=== PATIENT | male | born 2000 | race Two or more races ===

== ENCOUNTER 2024-10-13 02:33 | Emergency (ER) | payer BC, SELFPAY ==
[2024-10-13 02:35] VITALS: BMI 35.7
[2024-10-13 02:39] VITALS: BP 116/72; PULSE 73; RESP 18; TEMP 36.4; O2SAT 98
--- NOTE | 2024-10-13 02:47 | EKG_ITS ---
[facility] Test Date: 2024-10-13 Pat Name: JACOBO PEÑA Department: Room: - Gender: Male Sales Producer: : 2000 Requested By: Kyle Galindo Order Number: [id number] Reading MD: Kyle Galindo Measurements Intervals [place] Rate: 66 P: 66 [place]: 150 QRS: 51 QRSD: 89 T: 47 QT: 325 QTc: 342 Interpretive Statements SINUS RHYTHM WITH SINUS ARRHYTHMIA No previous ECG available for comparison /store/[email or web address]/[id number].pdf
--- NOTE | 2024-10-13 03:08 | XR_ITS ---
Examination: CT brain head without contrast. 2-D sagittal coronal reconstructions Date and time of exam:October 13, 2024 0423 hrs. Indications: Dizziness beginning 3 days ago CTDI: vol (mGy):51.4 DLP: (mGycm):1001 Technique: Multiple CT axial sections of the brain have been obtained, 5 mm slice thickness. Contrast has not been administered. 2-D sagittal, coronal reconstructions have been obtained Low dose protocols were performed. One or more of the following dose reduction techniques were used; automated exposure control, adjustment of the mA and/or KV according to patient size, use of iterative reconstruction technique. Findings: No significant ventricular enlargement. Intra-axial or extra-axial hemorrhage density is not seen. No mass effect or midline shift Basal cisterns are not remarkable. Fourth ventricle is midline. Cranial vault intact. Impression: Negative for acute hemorrhage, mass effect or midline shift Advise clinical correlation follow-up accordingly
[2024-10-13 03:40] LABS: Basophils % (Auto) 0 % (0-2.5); Eosinophils % (Auto) 0 % (0-10); Hematocrit 41.5 % (41.0-53.0); Hemoglobin 14.5 g/dL (13.5-16.0); Immature Granulocytes % (Auto) 0 % (0-0); Immature Granulocytes Auto 0.02 Thou/mm3 (0.00-0.00); Lymphocytes # (Auto) 1.7 Thou/mm3 (1.0-4.8); Lymphocytes % (Auto) 20 % (10-50); Mean Corpuscular HGB Conc 34.9 g/dl (31.0-37.0); Mean Corpuscular Hemoglobin 30.5 pg (25.0-35.0); Mean Corpuscular Volume 87 fL (80-100); Monocytes # (Auto) 0.5 Thou/mm3 (0.0-0.8); Monocytes % (Auto) 5 % (0-12); Neutrophils # (Auto) 6.5 Thou/mm3 (1.8-7.7); Neutrophils % (Auto) 75 % (37-80); Nucleated Red Blood Cell % 0 /100 WBC (0); Platelet Count 265 Thou/mm3 (140-440); RDW Standard Deviation 41.4 fL (35.1-43.9); Red Blood Count 4.76 Miln/mm3 (4.50-5.90); White Blood Count 8.7 Thou/mm3 (3.8-10.6)
[2024-10-13 03:48] LABS: Collection Type, Urine Clean Catch
[2024-10-13] MEDS: MECLIZINE HCL 25 MG TABLET PO (03:48)
[2024-10-13 04:05] LABS: Alanine Aminotransferase 13 U/L (10-49); Albumin, Serum 4.7 gm/dL (3.5-5.0); Albumin/Globulin Ratio 1.4 (1.2-2.2); Alcohol, Blood Medical < 3.0 mg/dL (0-10.0); Alkaline Phosphatase 68 U/L (46-116); Anion Gap 8 (7-16); Aspartate Amino Transferase 19 U/L (0-34); BUN/Creatinine Ratio 15 Ratio (12-20); Bilirubin,Total 0.6 mg/dL (0.3-1.2); Blood Urea Nitrogen 12 mg/dL (9-23); Calcium 10.4 mg/dL (8.3-10.6); Calcium (Corrected) 10.4 mg/dL (8.5-10.1); Carbon Dioxide 27.3 mMol/L (20.0-31.0); Chloride 106 mMol/L (98-107); Creatinine (Component) 0.8 mg/dL (0.6-1.3); Estimated Creatinine Clearance 165.6 mL/min (>60); Globulin 3.3 gm/dL (2.3-3.5); Glucose 103 mg/dL (74-106); Osmolality,Calculated 280 (275-295); Potassium 4.6 mMol/L (3.4-5.1); Sodium 141 mMol/L (136-145); Troponin I < 0.020 ng/mL (0.0-0.045); eGFR > 60 See Note
[2024-10-13 04:25] LABS: Bilirubin,Urine Negative (Negative); Blood,Urine Negative (Negative); Clarity,Urine Clear (Clear/Hazy); Color,Urine Yellow (Lt Yel-Yel); Glucose, Urine Negative (Negative); Ketones,Urine Negative (Negative); Leukocyte Esterase,Urine Negative (Negative); Nitrite,Urine Negative (Negative); Protein,Urine 1+ (Neg - Trace); RBC,Urine 2 /hpf (0-3); Specific Gravity,Urine 1.039 (1.001-1.035); Squamous Epithelial Cell,Urine < 1 /hpf (0-5); Urobilinogen,Urine Negative mg/dL (0.0-1.0); WBC,Urine 1 /hpf (0-5)
--- NOTE | 2024-10-13 04:38 | PRELIM_ITS ---
CT scan of the head without intravenous contrast (axial sections with sagittal and coronal reformats). October 13, 2024 0423 hours Clinical History: Worsening dizziness Comparison: None Findings: There is no intracranial hemorrhage, extra-axial collection, mass, mass-effect or midline shift. There is good lam-white differentiation. There is no CT evidence of acute large vascular territorial infarct. Ventricles are not enlarged or effaced. Visualized paranasal sinuses and tympanomastoid cavities are clear. The bony calvarium is intact. Impression: No intracranial hemorrhage, mass-effect or midline shift. No CT evidence of acute large vascular territorial infarct. Report Electronically Signed By: Aurelio Domingo 10/13/2024 4:37:48 AM [EST]
[2024-10-13 04:40] LABS: Amphetamine/Methamp Scrn,U Negative (Negative); Barbiturate Screen,Urine Negative (Negative); Benzodiazepines Screen,Urine Negative (Negative); Benzoylecgonine Screen, Ur Negative (Negative); Fentanyl Screen,Urine Negative (Negative); Opiate Screen,Urine Negative (Negative); THC Screen,Urine Positive (Negative)
[2024-10-13 04:50] VITALS: BP 112/72; PULSE 76; RESP 16; TEMP 36.6; O2SAT 98
--- NOTE | 2024-10-13 04:51 | PD.EDDIZZY ---
ED Dizzyness RME/HPI General Chief Complaint: Dizziness Stated Complaint: DIZZINESS Time Seen by Provider: 10/13/24 03:08 Arrival date/time: 10/13/24 02:33 24M with no significant PMH presents to ED with 3 days of dizziness that is worse with movement of his head/walking. Patient denies fall/trauma, AMS, seizures, N/V, vision changes, and slurred speech. Patient also denies drug/alcohol use. Limitations: no limitations Related Data Previous Rx's ?Medication ?Instructions ?Recorded ibuprofen 600 mg tablet 600 mg PO Q6HR PRN PAIN #20 tabs 04/16/17 Allergies Allergy/AdvReac Type Severity Reaction Status Date / Time No Known Allergies Allergy Mild Uncoded 04/16/17 13:38 Review of Systems Review of Systems Systems Reviewed: All systems reviewed, normal except as documented Constitutional Constitutional: Reports system reviewed and no additional complaints, except as documented, Denies fever(s) and Denies headache(s) ENT Ears, Nose, Mouth, and Throat: Reports as per HPI, Denies disequilibrium, Denies headache(s) and Reports vertigo Cardiovascular Cardiovascular: Reports system reviewed and no additional complaints, except as documented, Denies chest pain and Denies dyspnea Respiratory Respiratory: Reports system reviewed and no additional complaints, except as documented, Denies cough and Denies dyspnea Gastrointestinal Gastrointestinal: Reports system reviewed and no additional complaints, except as documented, Denies abdominal pain, Denies nausea and Denies vomiting Neurologic Neurologic: Reports system reviewed and no additional complaints, except as documented, Denies confusion, Denies disequilibrium, Denies headache(s) and Reports vertigo Psychiatric Psychiatric: Denies confusion Past Medical History Past Medical History CARDIAC: Negative Cardiac Disorders or Congestive Heart Failure RESPIRATORY: Negative Chronic Obstructive Pulmonary Disease (COPD) GASTROINTESTINAL: Negative Gastrointestinal Disorders GENITOURINARY: Negative Genitourinary Disorders or Renal Disease MUSCULOSKELETAL: Positive Fractures ENDOCRINE: Negative Endocrine Disorders, Diabetes Mellitus Type 1 or Diabetes Mellitus Type 2 HEMATOLOGIC: Negative Blood Disorders OTHER HISTORY: Negative Cancer Surgical History SURGICAL: Negative Abdominal Surgery Social History SMOKING STATUS: Never smoker ED Exam General Limitations: Present no limitations General appearance: Present alert and in no apparent distress Head Head exam: Present atraumatic Eye Eye exam: Present normal appearance, PERRL and EOMI ENT ENT exam: Present normal exam, normal oropharynx and mucous membranes moist Neck Neck exam: Present normal inspection, full ROM and trachea midline Chest Chest inspection: Present normal inspection and symmetric chest wall rise Respiratory Respiratory exam: Present normal lung sounds bilaterally Cardiovascular Cardiovascular exam: Present regular rate, normal rhythm and normal heart sounds Abdominal Exam Abdominal exam: Present soft and normal bowel sounds Extremities Exam Extremities exam: Present normal inspection and full ROM Back Exam Back exam: Present normal inspection and full ROM Neurological Exam Neurological exam: Present alert, oriented X3 and CN II-XII intact Psychiatric Psychiatric exam: Present normal affect and normal mood Skin Skin exam: Present warm, dry, intact and normal color Course Quality Measures none Orders Category Date Time Status EKG (ED ONLY) *Do not use* NOW Care 10/13/24 02:47 Completed Fingerstick [Bedside Blood Glucose] NOW Care 10/13/24 02:[address] head/brain wo con Stat Exams 10/13/24 03:08 Taken EKG (ED Only) Stat Exams 10/13/24 02:47 Draft Alcohol, Blood Medical Stat Lab 10/13/24 03:24 Completed CBC Stat Lab 10/13/24 03:24 Completed CMP [Comprehensive Metabolic Panel] Stat Lab 10/13/24 03:24 Completed Drug Screen,Urine Stat Lab 10/13/24 03:13 Completed Troponin I Stat Lab 10/13/24 03:24 Completed UA [Urinalysis] Stat Lab 10/13/24 03:13 Completed Meclizine HCl [Antivert] Med 10/13/24 03:09 Discontinued 25 mg PO X1 ONE Vital Signs Vital signs: Vital Signs Temperature 97.6 F 10/13/24 02:39 Pulse Rate 73 10/13/24 02:39 Respiratory Rate 18 10/13/24 02:39 Blood Pressure 116/72 10/13/24 02:39 Pulse Oximetry (%) 98 10/13/24 02:39 Oxygen Delivery Method Room Air 10/13/24 02:39 O2 at 98% on RA and WNLs Dizziness MDM Narrative MDM Narrative:: 24M with no significant PMH presents to ED with 3 days of dizziness that is worse with movement of his head/walking. Patient denies fall/trauma, AMS, seizures, N/V, vision changes, and slurred speech. Patient also denies drug/alcohol use. Physical exam reveals normal pupil response and EOM. CN II-XII grossly intact. Strength equal bilaterally. Gait normal. There is a R-sided lazy eye and eyelid drooping, but patient states that's normal for him. Patient is afebrile, calm, and alert. CT no acute abnormalities. EKG is NSR. No leukocytosis. CMP unremarkable. Trop normal. UA normal. Alcohol neg. Marijuana positive. Meclizine did not help with symptoms. Patient does not want to wait for MRI. Patient will return if worsening. Patient data External records reviewed:: [facility] previous records Clinical information provided by:: patient Social determinants that could affect healthcare access:: none Patient has the following chronic illnesses:: none How is presenting disease/condition affected by chronic disease/condition?: no chronic disease Evaluation data The following diagnostics were reviewed and interpreted by me:: lab results, radiology exam(s) and EKG tracing(s) Lab and/or radiology exams considered but not ordered:: ordered Interpretation Summary: above Medications / Prescriptions Medications or Prescriptions considered but not ordered:: ordered Medication administrations:: Medication Administration History Discontinued Medications Meclizine HCl (Meclizine Hcl 25 Mg Tablet) 25 mg PO X1 ONE Stop: 10/13/24 03:10 Last Admin: 10/13/24 03:48 Dose: 25 mg Documented By: EF above Consultations Consultation(s) initiated? (list below): No Diagnosis Dizziness Differential Diagnosis: adverse reaction to drug, benign paroxysmal positional vertigo, orthostatic hypotension, vertebral basilar insufficiency, cerebrovascular accident, acute vestibular neuronitis, transient cerebral ischemia and other (dizziness) Most likely diagnosis given after review of the tests above:: dizziness Admission Indicated Admission indicated?: not indicated Admission Request Was there a request for admission?: No Disposition Plan Disposition Plan: Discharge Discharge Attestation Discharge Attestation: The patient and all family members were given an opportunity to ask questions and understood the discharge instructions. Discharge instructions specifically effects, indications for sooner follow up or return to the emergency department, and the expected course of current diagnosis. Patient condition: Stable Discharge Plan Plan Patient Disposition: HOME (Self Care) Disposition Comment: Stable Prescriptions/Referrals Prescriptions/Med Rec: No Action ibuprofen 600 MG tablet 600 mg PO Q6HR PRN (Reason: PAIN) Qty: 20 0RF Referrals: No Primary/Family,Physician [Primary Care Provider] - In 1 week Problem List Clinical Impression: Dizziness Patient/Caregiver Discharge Instructions Education Materials: BPPV, ED Dizziness, Uncertain Cause Additional Instructions: Please follow-up with PCP within 24-48 hours and return immediately if symptoms worsen. Can look ask PCP about Mykel Maneuver. Print Language: Bulgarian Stand Alone Forms: Patient Portal Info Letter PA/EVENT SALES REPRESENTATIVE Supervising Physician PA/EVENT SALES REPRESENTATIVE Supervising Physician: Dr. Lira
--- NOTE | 2024-10-13 04:58 | PD.EDADDENDU ---
Emergency Room Addendum Addendum Narrative: ENT exam was also normal.
== END 2024-10-13 04:51 | disposition home or self-care (01) ==
PROVIDERS: Physician Assistant; Emergency Provider Emergency Medicine
DX: R42 Dizziness and giddiness (principal)
CPT/HCPCS: 36415; 70450; 80053; 80307; 80320; 81001; 84484; 85025; 93005; 99284; A9270; G0480

== ENCOUNTER 2024-10-13 08:57 | Emergency (ER) | payer BC, SELFPAY ==
--- NOTE | 2024-10-13 | XR_ITS ---
Examination: MRI brain without intravenous contrast. Date and time of exam: October 13, 2024 at 11:41 AM Indications: Headaches dizziness beginning one week ago Technique: Multiple axial and sagittal images of the brain obtained. Siemens high-resolution 1.5 Maria Luz short bore scanners utilized. Sagittal sections, T1-weighted, TR 500, TE 14, are performed. Axial sections proton-density and T2-weighted have been obtained. Inversion recovery axial images, TR 9, 260, TE 111, TI 2500. Diffusion weighted images, axial sections, TR 4800, TE 128, B value 1000 Axial sections, ADC map, TR 4800, TE 128 Findings: Enlargement of the sella turcica is not present. The optic chiasm and infundibular are not remarkable. Prepontine and interpeduncular cisterns are not enlarged. There is no localized enlargement of the medulla or becka. Fourth ventricle and cerebellar tonsils appear normal in position. No subacute area of hemorrhage density is seen. Mass in the cerebellopontine angle region is not evident. Globes symmetrical. Orbital musculature including medial lateral rectus muscles do not exhibit abnormality. Diffusion-weighted images demonstrate no focus of restricted diffusion. Increased white matter signal not seen Mild chronic pansinusitis Mild left mastoiditis Mass effect upon the ventricular system is not identified. Impression: Negative for acute hemorrhage mass effect or midline shift No acute infarct No MR findings of demyelinating disease Mild chronic pansinusitis Mild left mastoiditis
[2024-10-13 09:25] VITALS: BP 122/74; PULSE 71; RESP 18; TEMP 36.8; O2SAT 99; BMI 35.0
--- NOTE | 2024-10-13 09:40 | EDNOTE_ITS ---
ED Headache RME/HPI General Chief Complaint: Headache Stated Complaint: HEADACHE X 4 DAYS, BACK FOR MRI; TYLENOL 2200 Time Seen by Provider: 10/13/24 09:05 Source: patient Arrival date/time: 10/13/24 08:57 24-year-old male here in the emergency department for complaints of headache and dizziness for 1 week. Patient does report he was evaluated in the emergency department last night and was instructed by ER physician to return for MRI this a.m. Patient reports still having pain tension type headache Took Tylenol at approximately 2200. Also reports mild dizziness. No reports of fever, chills no nausea no vomiting, no blurry vision. Mode of arrival: ambulatory Limitations: no limitations Related Data Previous Rx's ?Medication ?Instructions ?Recorded ibuprofen 600 mg tablet 600 mg PO Q6HR PRN PAIN #20 tabs 04/16/17 cetirizine 10 mg tablet 10 mg PO QDAY PRN allergy sy mptoms 10/13/24 #30 tabs pseudoephedrine HCl 60 mg tablet 60 mg PO Q6H PRN nasa l congestion 10/13/24 #20 tabs Allergies Allergy/AdvReac Type Severity Reaction Status Date / Time No Known Allergies Allergy Mild Uncoded 04/16/17 13:38 Review of Systems Review of Systems Systems Reviewed: All systems reviewed, normal except as documented Narrative Review of Systems: Gen: No fever, no chills, no weight loss, +headache EYES: No discharge, no visual changes, no pain HEENT: No ear pain, no congestion, no sore throat PULM: No shortness of breath, no cough, no congestion CV: No chest pain, no dyspnea on exertion, no palpitations GI: No nausea, no vomiting, no diarrhea, no pain, no constipation : No frequency, no urgency,? no dysuria Musc/skel: No joint pain, no back pain Skin: No rash? ED Exam General Limitations: Present no limitations General appearance: Present alert and in no apparent distress Head Head exam: Present atraumatic Eye Eye exam: Present normal appearance, PERRL and EOMI ENT ENT exam: Present normal exam, normal oropharynx and mucous membranes moist Neck Neck exam: Present normal inspection, full ROM and trachea midline Chest Chest inspection: Present normal inspection and symmetric chest wall rise Respiratory Respiratory exam: Present normal lung sounds bilaterally Cardiovascular Cardiovascular exam: Present regular rate, normal rhythm and normal heart sounds Abdominal Exam Abdominal exam: Present soft and normal bowel sounds Extremities Exam Extremities exam: Present normal inspection and full ROM Back Exam Back exam: Present normal inspection and full ROM Neurological Exam Neurological exam: Present alert, oriented X3 and CN II-XII intact Psychiatric Psychiatric exam: Present normal affect and normal mood Skin Skin exam: Present warm, dry, intact and normal color Course Quality Measures none Orders Category Date Time Status MRI Screening NOW Care 10/13/24 09:35 Completed MR head/brain wo con Stat Exams 10/13/24 Completed Meclizine HCl [Antivert] Med 10/13/24 09:35 Discontinued 25 mg PO X1 ONE Vital Signs Vital signs: Vital Signs Temperature 98.2 F 10/13/24 09:25 Pulse Rate 71 10/13/24 09:25 Respiratory Rate 18 10/13/24 09:25 Blood Pressure 122/74 10/13/24 09:25 Pulse Oximetry (%) 99 10/13/24 09:25 Oxygen Delivery Method Room Air 10/13/24 09:25 Headache MDM Narrative MDM Narrative:: MRI reviewed with patient headache. And dizziness is most likely secondary to acute pansinusitis. Will be treating with antibiotics. And advised to follow-up with PCP. Patient data External records reviewed:: [facility] previous records Clinical information provided by:: patient Social determinants that could affect healthcare access:: none Patient has the following chronic illnesses:: no How is presenting disease/condition affected by chronic disease/condition?: no chronic disease Evaluation data The following diagnostics were reviewed and interpreted by me:: radiology exam(s) Lab and/or radiology exams considered but not ordered:: no Interpretation Summary: Examination: MRI brain without intravenous contrast. Date and time of exam: October 13, 2024 at 11:41 AM Indications: Headaches dizziness beginning one week ago Technique: Multiple axial and sagittal images of the brain obtained. Siemens high-resolution 1.5 Maria Luz short bore scanners utilized. Sagittal sections, T1-weighted, TR 500, TE 14, are performed. Axial sections proton-density and T2-weighted have been obtained. Inversion recovery axial images, TR 9, 260, TE 111, TI 2500. Diffusion weighted images, axial sections, TR 4800, TE 128, B value 1000 Axial sections, ADC map, TR 4800, TE 128 Findings: Enlargement of the sella turcica is not present. The optic chiasm and infundibular are not remarkable. Prepontine and interpeduncular cisterns are not enlarged. There is no localized enlargement of the medulla or becka. Fourth ventricle and cerebellar tonsils appear normal in position. No subacute area of hemorrhage density is seen. Mass in the cerebellopontine angle region is not evident. Globes symmetrical. Orbital musculature including medial lateral rectus muscles do not exhibit abnormality. Diffusion-weighted images demonstrate no focus of restricted diffusion. Increased white matter signal not seen Mild chronic pansinusitis Mild left mastoiditis Mass effect upon the ventricular system is not identified. Impression: Negative for acute hemorrhage mass effect or midline shift No acute infarct No MR findings of demyelinating disease Mild chronic pansinusitis Mild left mastoiditis Medications / Prescriptions Medications or Prescriptions considered but not ordered:: no Medication administrations:: Medication Administration History Discontinued Medications Meclizine HCl (Meclizine Hcl 25 Mg Tablet) 25 mg PO X1 ONE Stop: 10/13/24 09:36 Last Admin: 10/13/24 11:00 Dose: 25 mg Documented By: All medications administered and effective Consultations Consultation(s) initiated? (list below): No Diagnosis Differential diagnosis headache: migraine, tension headache, headache, sinusitis and postconcussion syndrome Most likely diagnosis given after review of the tests above:: Pansinusitis, Admission Indicated Admission indicated?: not indicated Admission Request Was there a request for admission?: No Disposition Plan Disposition Plan: Discharge Discharge Attestation Discharge Attestation: The patient and all family members were given an opportunity to ask questions and understood the discharge instructions. Discharge instructions specifically effects, indications for sooner follow up or return to the emergency department, and the expected course of current diagnosis. Patient condition: Stable Discharge Plan Plan Patient Disposition: HOME (Self Care) Patient condition on transfer: Stable Prescriptions/Referrals Prescriptions/Med Rec: New cetirizine 10 mg tablet 10 mg PO QDAY PRN (Reason: allergy symptoms) Qty: 30 0RF pseudoephedrine HCl 60 mg tablet 60 mg PO Q6H PRN (Reason: nasal congestion) Qty: 20 0RF No Action ibuprofen 600 MG tablet 600 mg PO Q6HR PRN (Reason: PAIN) Qty: 20 0RF Referrals: No Primary/Family,Physician [Primary Care Provider] - In 1 week Problem List Clinical Impression: Acute pansinusitis, Mastoiditis Patient/Caregiver Discharge Instructions Discharge Activity: activity as tolerated Education Materials: ED Sinusitis (Antibiotic Treatment) Additional Instructions: Your headaches and dizziness is caused by pansinusitis infection/ Mastoiditis. This can can be lead from uncontrolled allergies that cause buildup pressure then causes infection. Please start allergy medication - Benadryl as needed - Flonase as needed - Start and complete antibiotic therapy as directed. If no improvement might need an ENT referral by your PCP/clinic Return to the emergency department if any worsening symptoms change in condition. Print Language: Turkmen Stand Alone Forms: Milka Award Info., Patient Portal Info Letter PA/PROMOTIONS COORDINATOR Supervising Physician PA/PROMOTIONS COORDINATOR Supervising Physician: Dr. Greer
[2024-10-13] MEDS: MECLIZINE HCL 25 MG TABLET PO (11:00)
== END 2024-10-13 14:50 | disposition home or self-care (01) ==
PROVIDERS: Emergency Provider Emergency Medicine
DX: J01.40 Acute pansinusitis, unspecified (principal); H70.92 Unspecified mastoiditis, left ear
CPT/HCPCS: 70551; 99284; A9270